=== PATIENT | female | born 1990 | race African-American/Black ===

== ENCOUNTER 2020-05-16 05:36 | Inpatient (IN) ==
[2020-05-16] MEDS ORDERED: LACTATED RINGERS 1,000 ML IV ONE ×2 (05:46→07:32)
[2020-05-16] MEDS ORDERED: FAMOTIDINE 20 MG/2 ML VIAL IV ONE (06:30)
[2020-05-16] MEDS ORDERED: ceFAZolin 2,000 MG in PREMIX 1 EACH IV ONE (06:30)
[2020-05-16] MEDS ORDERED: CITRIC ACID/SODIUM CITRATE 30 ML UDCUP PO ONE (06:30)
[2020-05-16] MEDS ORDERED: ONDANSETRON 4 MG/2 ML VIAL ONE (06:43)
[2020-05-16] MEDS ORDERED: MORPHINE 10 MG/10 ML VIAL ONE (06:43)
[2020-05-16 06:58] LABS: Basophils % 0.6 % (0.0-0.8); Eosinophils % 0.3 % (0.00-10.9); Hematocrit 32.2 VOL% (35.7-47.0); Hemoglobin 10.4 GM/DL (12.0-16.0); Immature Granulocytes % 0.4 %; Immature Granulocytes Absolute 0.03 #; Lymphocytes # 2.2 10*3/uL (1.4-4.0); Lymphocytes % 31.9 % (21.3-54.2); Mean Corpuscular HGB Conc 32.3 GM/DL (32-36); Mean Corpuscular Volume 83.4 FL (87-102); Mean Platelet Volume 11.3 FL (9.6-12.0); Monocytes % 9.1 % (1.7-12.7); Neutrophils % 57.7 % (38.7-73.9); Platelet Count 204 T/CUMM (130-400); Red Blood Count 3.86 MC/CUMM (3.8-5.5); Red Cell Distribution Width 12.3 % (9.3-17.3); White Blood Count 6.9 T/CUMM (4-12)
[2020-05-16] MEDS ORDERED: BUPIVACAINE SPINAL 0.75% 2 ML AMP SPINAL ONE (07:04)
[2020-05-16] MEDS ORDERED: DEXAMETHASONE 4 MG/1 ML VIAL ONE (07:04)
[2020-05-16 07:09] LABS: PT Patient Result 21.2 SECS (9.8-11.9); Partial Thromboplastin Time 47.7 SECS (23.9-33.8)
[2020-05-16] MEDS ORDERED: GLYCOPYRROLATE 0.4 MG/2 ML VIAL ONE (07:22)
[2020-05-16] MEDS ORDERED: PHENYLEPHRINE 1 MG/10 ML SYRINGE IV ONE (07:22)
[2020-05-16 07:23] LABS: Bilirubin,Direct < 0.100 MG/DL (0.0-0.20)
[2020-05-16 07:33] LABS: Alanine Aminotransferase 22 U/L (13-56); Albumin 2.9 G/DL (3.4-5.0); Alkaline Phosphatase 134 U/L (45-117); Aspartate Amino Transferase 24 U/L (0-37); Bilirubin,Total < 0.39 MG/DL (0.2-1.0); Blood Urea Nitrogen 10 MG/DL (7-18); Calcium 8.8 MG/DL (8.5-10.1); Carbon Dioxide 22 MMOL/L (21-32); Estimated Glom Filtration Rate 99 ML/MIN; Glucose 58 MG/DL (74-106); Osmolality,Calculated 266.1 MOS/KG (273-304); Potassium 3.7 MMOL/L (3.5-5.1); Sodium 135 MMOL/L (136-145)
[2020-05-16] MEDS ORDERED: TRANEXAMIC ACID 1,000 MG/10 ML VIAL ONE (07:33)
[2020-05-16] MEDS ORDERED: miSOPROStoL 200 MCG TABLET ONE (07:33)
[2020-05-16] MEDS ORDERED: METHYLERGONOVINE 0.2 MG/1 ML AMP ONE (07:34)
[2020-05-16] MEDS ORDERED: CARBOPROST TROMETHAMINE 250 MCG/ML AMP IM ONE (07:34)
[2020-05-16] MEDS ORDERED: OXYTOCIN/LR 20 UNIT/1,000 ML BAG IV ONE ×2 (07:38→08:15)
[2020-05-16] MEDS ORDERED: KETOROLAC 30 MG/1 ML VIAL ONE (07:41)
[2020-05-16] MEDS ORDERED: ACETAMINOPHEN 1,000 MG/100 ML VIAL IV ONE (07:41)
[2020-05-16 07:56] LABS: Cord Arterial Blood HCO3 21.6 MMOL/L
[2020-05-16 08:06] LABS: Bacteria,Urine Occasional /HPF (Few); Bilirubin,Urine Negative (Negative); Blood, Urine Negative (Negative); Glucose,Urine (UA) Negative (Negative); Ketones,Urine Negative (Negative); Mucus,Urine Few /LPF (Occasional); Nitrite,Urine Negative (Negative); Protein,Urine Negative; RBC,Urine 1 /HPF (0-4); Squamous Epithelial Cell,Urine Occasional /HPF (0-10); Urine Appearance CLEAR (Clear); Urine Color Yellow (Yellow); Urine Specific Gravity 1.026 (1.001-1.035); Urine Urobilinogen < 2.0 EU/DL (0.2-1.0); WBC,Urine 3 /HPF (0-6)
[2020-05-16] MEDS ORDERED: RHO(D) IMMUNE GLOBULIN 300 MCG SYRINGE IM ONE (08:15)
[2020-05-16] MEDS ORDERED: HYDROCORTISONE 2.5% RECTAL CREAM 30 GM TUBE TOP PRN (08:15)
[2020-05-16] MEDS ORDERED: IBUPROFEN 800 MG TABLET PO PRN (08:15)
[2020-05-16] MEDS ORDERED: DIPH/TET/ACEL PERT BOOSTER VACCINE 0.5 ML VIAL IM ONE (08:15)
[2020-05-16] MEDS ORDERED: oxyCODONE/ACETAMINOPHEN 5-325 MG TABLET PO PRN (08:15)
[2020-05-16] MEDS ORDERED: BENZOCAINE 20%/MENTHOL 0.5% SPRAY 56 GM CAN TOP PRN (08:15)
[2020-05-16] MEDS ORDERED: LANOLIN 50% CREAM 0.3 OZ TUBE TOP PRN (08:15)
[2020-05-16] MEDS ORDERED: MEASLES/MUMPS/RUBELLA VACCINE 0.5 ML VIAL SUBCUT ONE (08:15)
[2020-05-16] MEDS ORDERED: ONDANSETRON 4 MG/2 ML VIAL IV PRN (08:15)
[2020-05-16] MEDS ORDERED: ACETAMINOPHEN 325 MG TABLET PO PRN (08:15)
[2020-05-16] MEDS ORDERED: WITCH HAZEL PADS 100/JAR TOP PRN (08:15)
[2020-05-16] MEDS ORDERED: BISACODYL 10 MG SUPP RECTAL PRN (08:15)
[2020-05-16] MEDS ORDERED: LABETALOL 100 MG TABLET PO SCH (09:04)
[2020-05-16] MEDS: hydrALAZINE 20 MG/1 ML VIAL IV PRN ×2 (10:05→10:32)
[2020-05-16] MEDS: LACTATED RINGERS 1,000 ML IV SCH ×2 (11:11→20:00)
[2020-05-16] MEDS: KETOROLAC 30 MG/1 ML VIAL IV PRN (15:09)
[2020-05-16] MEDS: ceFAZolin 1,000 MG in SYRINGE 1 EACH IV SCH ×2 (15:12→23:23)
[2020-05-16] MEDS: LABETALOL 100 MG TABLET PO SCH (17:51)
[2020-05-16] MEDS ORDERED: diphenhydrAMINE 50 MG/1 ML VIAL IM PRN (20:56)
[2020-05-16] MEDS: DOCUSATE SODIUM 100 MG CAPSULE PO SCH (21:04)
[2020-05-16] MEDS ORDERED: diphenhydrAMINE 50 MG/1 ML VIAL IV PRN (21:30)
[2020-05-17] MEDS: LABETALOL 100 MG TABLET PO SCH ×3 (01:09→17:26)
[2020-05-17 05:24] LABS: Basophils % 0.1 % (0.0-0.8); Hematocrit 27.3 VOL% (35.7-47.0); Hemoglobin 9.3 GM/DL (12.0-16.0); Immature Granulocytes % 0.4 %; Immature Granulocytes Absolute 0.04 #; Lymphocytes # 1.8 10*3/uL (1.4-4.0); Lymphocytes % 18.9 % (21.3-54.2); Mean Corpuscular HGB Conc 34.1 GM/DL (32-36); Mean Corpuscular Volume 80.5 FL (87-102); Mean Platelet Volume 10.8 FL (9.6-12.0); Monocytes % 5.8 % (1.7-12.7); Neutrophils % 74.8 % (38.7-73.9); Platelet Count 190 T/CUMM (130-400); Red Blood Count 3.39 MC/CUMM (3.8-5.5); Red Cell Distribution Width 12.2 % (9.3-17.3); White Blood Count 9.5 T/CUMM (4-12)
[2020-05-17] MEDS: KETOROLAC 30 MG/1 ML VIAL IV PRN (05:40)
[2020-05-17] MEDS: DOCUSATE SODIUM 100 MG CAPSULE PO SCH ×2 (08:33→21:54)
[2020-05-17] MEDS: MAGNESIUM HYDROXIDE SUSP 30 ML UDCUP PO PRN ×2 (10:35→21:54)
[2020-05-17] MEDS: oxyCODONE/ACETAMINOPHEN 5-325 MG TABLET PO PRN (18:21)
[2020-05-18] MEDS: LABETALOL 100 MG TABLET PO SCH ×2 (00:53→08:03)
[2020-05-18] MEDS: oxyCODONE/ACETAMINOPHEN 5-325 MG TABLET PO PRN (01:01)
[2020-05-18] MEDS: DOCUSATE SODIUM 100 MG CAPSULE PO SCH (08:03)
[2020-05-18] MEDS: MAGNESIUM HYDROXIDE SUSP 30 ML UDCUP PO PRN (08:04)
[2020-05-18 08:34] VITALS: BP 140/94
== END 2020-05-18 15:00 | disposition home or self-care (01) | DRG 540 ==
LOC: N.LD 05:36 → N.OB 14:50
PROVIDERS: ADMIT Specialist; ATTEND Specialist